=== PATIENT | female | born 1955 | race Caucasian/White ===

== ENCOUNTER 2016-06-03 10:17 | Outpatient (CLI) ==
--- NOTE | 2016-06-04 07:26 | MAMMO ---
EXAM: Digital screening mammogram HISTORY: Screening mammogram COMPARISON: Mammogram 06/07/2013 FINDINGS: Bilateral CC and MLO views of the breasts were performed digitally and demonstrate hetero geneously dense breast density (50 - 75%). Benign bilateral calcifications are redemonstrated. Nancy st density limits evaluation of subtle nodules. There is no abnormal nodule or calcification. Ther e is no significant interval change. IMPRESSION: No new or suspicious nodule or calcification RECOMMENDATION: Annual screening mammogram BIRADS category II: Benign findings
== END 2016-06-03 10:18 | disposition home or self-care (01) ==
LOC: RAD 10:17
DX: Z12.31 Encounter for screening mammogram for malignant neoplasm of breast (principal)

== ENCOUNTER 2017-06-12 10:55 | Outpatient (CLI) ==
--- NOTE | 2017-06-12 12:09 | MAMMO ---
EXAM: Digital screening mammogram with tomosynthesis HISTORY: Screening COMPARISON: 06/03/2016 FINDINGS: Digital MLO and CC views of the right and left breast were performed. Tomosynthesis was performed. Computer aided detection was utilized. There are scattered fibroglandular densities. Tarun ign bilateral calcifications. There is no evidence for mass, asymmetry, distortion, or suspicious ca lcifications in either breast. IMPRESSION: 1. No evidence of malignancy in the right or left breast. 2. Annual screening mammogram is recommended in one year. BIRADS category 2, benign
== END 2017-06-12 10:56 | disposition home or self-care (01) ==
LOC: RAD 10:55
PROVIDERS: ATTEND Nurse Practitioner Family
DX: Z12.31 Encounter for screening mammogram for malignant neoplasm of breast (principal)
CPT/HCPCS: 77067

== ENCOUNTER 2018-02-02 08:38 | Day surgery (SDC) ==
[2018-02-02 09:00] VITALS: TEMP 97
[2018-02-02] MEDS ORDERED: LIDOCAINE 1% 20 ML MDV ID STA (09:00)
--- NOTE | 2018-02-03 09:11 | OP ---
INDICATIONS FOR PROCEDURE: 62 year old female presents for colonoscopy exam. She has a remote history of polyps of unknown pathology with her last colonoscopy being over 8 years ago. She has had some bright red blood from rectum lately. MEDICATIONS: SEE ANESTHESIA NOTES. PROCEDURE: COLONOSCOPY. SNARE POLYPECTOMY. REPORT: The risks, benefits, alternatives and limitations were discussed in detail with the patient. Informed consent was obtained. After adequate sedation was achieved, a digital rectal exam revealed good tone, no masses. The colonoscope was introduced into the rectum and advanced under direct visual guidance to the cecum. The cecum was identified by the appendiceal orifice and IC valve. I then slowly withdrew the scope in circumferential manner and examined the mucosa quite carefully. I looked on the proximal and distal sides of folds and flexures as best as possible. I was able to retroflex the scope in the right colon and left colon to increase visualization. In the proximal transverse colon there is a semi sessile 6-7mm polyp I actually removed this by snare technique while advancing the scope. Withdrawing the scope revealed no other abnormalities other than a few small mouth diverticuli scattered throughout the sigmoid. Retroflex view of the anal canal revealed no other abnormalities. The prep was good and the withdraw time was 7 minutes and 10 seconds. The patient tolerated the procedure well with stable vital signs and pulse oximetry throughout. IMPRESSION: 1. Small polyps successfully removed 2. Sigmoid diverticulosis RECOMMENDATIONS: 1. High fiber diet 2. Office visit as needed 3. Await polyp pathology and if everything is benign as expected recommended repeat colonoscopy examination again in 5 years or sooner if there are signs or symptoms to indicate otherwise. CC:Dr. Jt REED
[2018-02-04 12:30] VITALS: BP 138/57
== END 2018-02-02 10:40 | disposition home or self-care (01) ==
LOC: SURG 08:38
PROVIDERS: ATTEND Internal Medicine Gastroenterology
DX: D12.3 Benign neoplasm of transverse colon (principal)

== ENCOUNTER 2018-07-02 10:13 | Outpatient (CLI) ==
--- NOTE | 2018-07-02 10:58 | MAMMO ---
EXAM: Bilateral digital diagnostic mammogram (2-D and 3-D) History: Left breast palpable abnormality. Comparison: Bilateral mammogram 06/03/2016 Findings: MLO and CC views of bilateral breasts demonstrate scattered fibroglandular breast parenchy ma. Stable benign bilateral breast calcifications. There are no dominant masses, no suspicious micr ocalcifications and no architectural distortions. Impression: Although no mammographic abnormalities are identified, recommend further evaluation with left breast ultrasound for the palpable event. BIRADS 0, incomplete further evaluation recommended
--- NOTE | 2018-07-02 13:38 | US ---
EXAM: Left breast ultrasound. History: Left breast palpable abnormality. Comparison: Bilateral diagnostic mammogram 07/02/2018 Technique: Multiple sonographic images through the left breast were obtained. Color duplex Doppler was used to interrogate vascular flow. Findings: No masses, cysts or fluid collections identified. Impression: No sonographic abnormalities. Benign left breast ultrasound. Recommend return to [facility] screening mammography. BIRADS 2, benign
== END 2018-07-02 10:14 | disposition home or self-care (01) ==
LOC: RAD 10:13
PROVIDERS: ATTEND Nurse Practitioner Family
DX: N63.21 Unspecified lump in the left breast, upper outer quadrant (principal); N64.4 Mastodynia

== ENCOUNTER 2018-08-20 11:44 | Outpatient (CLI) ==
--- NOTE | 2018-08-20 12:33 | DI ---
Exam: Chest two-view HISTORY: Cough. Comparison: 01/01/2016. FINDINGS: Two views of the chest demonstrate hyper expanded lungs with no evidence of pneumonia or e yudy. The heart is normal in size and configuration. The thoracic aorta is partially calcified. Ca lcified granulomata are noted. The pulmonary vasculature is not congested. The skeletal structures are intact. There are degenerative findings in the spine. Surgical clips are in the right upper abd omen. IMPRESSION: No acute cardiopulmonary disease. Hyperexpanded lungs consistent with COPD. Atherosclerosis.
== END 2018-08-20 11:45 | disposition home or self-care (01) ==
LOC: RAD 11:44
PROVIDERS: ATTEND Internal Medicine
DX: R05 Cough (principal)

== ENCOUNTER 2018-11-11 08:57 | Outpatient (CLI) ==
--- NOTE | 2018-11-11 11:42 | MRI ---
EXAM: MRI of the right shoulder without contrast COMPARISON: None available. HISTORY: Right shoulder pain. Fall. TECHNIQUE: Multiplanar noncontrast MR images of the right shoulder were acquired using a 1.2 Silvana m [employer]. The submitted images are moderately limited by patient motion artifact and the sagittal seque nces were repeated. FINDINGS: No recent radiographs of the right shoulder are available for comparison and radiographic correlation is recommended. There is marked supraspinatus and subscapularis tendinosis with moderate infraspinatus tendinosis. T here is a partial-thickness/intrasubstance tear with rim rent component involving the anterior insert ional fibers of the supraspinatus measuring 0.6 x 0.5 cm extent and involving approximately 50% of th e tendon thickness. Mild thinning bursal surface fraying of the supraspinatus more proximally at the level of the acromion related to bursal surface fraying/shallow partial-thickness bursal surface tea r. There is also a partial-thickness tear of the insertional fibers of the subscapularis with intras ubstance component and suspected articular surface involvement with tear involving approximately 50% of the tendon thickness. No full-thickness rotator cuff tear or tendon retraction. Minimal fluid in the subacromial/subdeltoid bursa. There is a moderate glenohumeral joint space narrowing with a small joint effusion. Hyperintense sig nal tracey involving ng the axillary pouch related to a capsular sprain or adhesive capsulitis. Limited assessment of the glenoid labrum on this non arthrographic study with suspected intrasubstance degen eration of the labrum. Linear hyperintense signal intervening between the biceps and superior glenoi d labrum at the biceps anchor and a small tear of the biceps labral complex is not excluded on this n on arthrographic study. Tendinosis/partial tear of the intra-articular segment of the long head of t he biceps with some medial subluxation of the tendon within its proximal bicipital groove segment int o the substance of the superior insertional fibers of the subscapularis. Moderate hypertrophic degenerative changes of the acromioclavicular joint with mild lateral downslopi ng of the acromion. No evidence of an os acromiale or abnormal widening of the acromioclavicular lenny nt space. No soft tissue mass identified. IMPRESSION: 1. Moderate to marked rotator cuff tendinosis. Partial-thickness/rim rent tear of the insertional f ibers of the supraspinatus with bursal surface fraying/shallow partial-thickness bursal surface tear more proximally. Partial-thickness tear of the distal subscapularis as described. No full-thickness rotator cuff tear or tendon retraction. 2. Intrasubstance degeneration of the glenoid labrum. Question tear of the biceps labral complex on this non arthrographic study and MR arthrography could be considered if clinically warranted. 3. Tendinosis/partial tear of the long head of the biceps. Medial subluxation of the tendon within its proximal bicipital groove segment as described. 4. Moderate hypertrophic degenerative changes of the acromioclavicular joint with mild lateral downs loping of the acromion. 5. Moderate glenohumeral joint osteoarthrosis. Small joint effusion. Hyperintense signal involving the axillary pouch related to a capsular sprain versus sequela of adhesive capsulitis
== END 2018-11-11 08:58 | disposition home or self-care (01) ==
LOC: RAD 08:57
PROVIDERS: ATTEND Orthopaedic Surgery
DX: M25.511 Pain in right shoulder (principal)